=== PATIENT | male | born 1985 | race African-American/Black ===

== ENCOUNTER 2019-08-21 06:47 | Emergency (ER) | payer BC ==
[2019-08-21 07:09] LABS: Absolute Lymphocytes (CBC) 1.4 K/uL (0.7-4.9); Basophils % 1.4 % (0-1.3); Hematocrit 37.3 % (39.6-49.0); Lymphocytes % 31.5 % (15.3-44.8); MPV 8.3 fL (7.6-11.3); RBC Red Blood Cell Count 4.42 M/uL (4.33-5.43)
[2019-08-21 07:11] LABS: Protime INR 1.1
[2019-08-21 07:31] LABS: ALT/SGPT 21 U/L (12-78); AST/SGOT 15 U/L (15-37); Albumin 3.4 g/dL (3.4-5.0); Alkaline Phosphatase 83 U/L (45-117); BUN Blood Urea Nitrogen 13 mg/dL (7-18); Bicarbonate 29 mmol/L (21-32); Bilirubin Direct 0.2 mg/dL (0-0.2); Bilirubin Total 0.6 mg/dL (0.2-1.0); Glucose Level 111 mg/dL (74-106); NT PRO-BNP 15 pg/mL (<125); Potassium 3.4 mmol/L (3.5-5.1); Protein, Total 6.7 g/dL (6.4-8.2); Sodium Level 143 mmol/L (136-145); Troponin (Emerg Dept Use Only) < 0.02 ng/mL (0.0-0.045)
--- NOTE | 2019-08-21 08:02 | RAD REPORT ---
EXAM DESCRIPTION: Jin Single View08/21/2019 7:20 am CLINICAL HISTORY: Chest pain COMPARISON: none FINDINGS: The lungs appear clear of acute infiltrate. The heart is normal size IMPRESSION: No acute abnormalities displayed
--- NOTE | 2019-08-21 09:43 | EDPHYS ---
Physician Documentation [facility] Name: Cesar Leiva Jr Age: 33 yrs Sex: Male : 1985 Arrival Date: 08/21/2019 Time: 06:45 Bed 18 Private MD: ED Physician Orville Werner HPI: 08/21 07:03 This 33 yrs old Black Male presents to ER via EMS with complaints of Chest Pain. jr8 07:03 Onset: The symptoms/episode began/occurred this morning, at 05:30. Associated signs and jr8 symptoms: Pertinent positives: chest pain, Pertinent negatives: congestion, cough, wheezing. Modifying factors: The patient symptoms are alleviated by nothing, the patient symptoms are aggravated by nothing. The patient has not experienced similar symptoms in the past. The patient has not recently seen a physician. Pt reports he was in the shower and began having a dull pain in the middle of this chest. Denies SOB, nausea, diaphoresis. Pt reports he is still experiencing pain, has taken 324 ASA SLIP MAKER . Historical: - Allergies: 06:47 No Known Allergies; ch - Home Meds: 06:47 None [Active]; ch - PMHx: 06:47 None; ch - PSHx: 06:47 None; ch - Immunization history:: Adult Immunizations up to date. - Social history:: Smoking status: Patient/guardian denies using tobacco. - Ebola Screening: : Patient negative for fever greater than or equal to 101.5 degrees Fahrenheit, and additional compatible Ebola Virus Disease symptoms Patient denies exposure to infectious person Patient denies travel to an Ebola-affected area in the 21 days before illness onset No symptoms or risks identified at this time. ROS: 07:05 Constitutional: Negative for fever, chills, and weight loss, Eyes: Negative for injury, jr8 pain, redness, and discharge, ENT: Negative for injury, pain, and discharge, Neck: Negative for injury, pain, and swelling, Respiratory: Negative for shortness of breath, cough, wheezing, and pleuritic chest pain, Abdomen/GI: Negative for abdominal pain, nausea, vomiting, diarrhea, and constipation, Back: Negative for injury and pain, MS/Extremity: Negative for injury and deformity, Neuro: Negative for headache, weakness, numbness, tingling, and seizure. 07:05 Cardiovascular: Positive for chest pain, Negative for edema, orthopnea, palpitations, paroxysmal nocturnal dyspnea. Exam: 07:06 Constitutional: This is a well developed, well nourished patient who is awake, alert, jr8 and in no acute distress. Head/Face: Normocephalic, atraumatic. Eyes: Pupils equal round and reactive to light, extra-ocular motions intact. Lids and lashes normal. Conjunctiva and sclera are non-icteric and not injected. Cornea within normal limits. Periorbital areas with no swelling, redness, or edema. ENT: Nares patent. No nasal discharge, no septal abnormalities noted. Tympanic membranes are normal and external auditory canals are clear. Oropharynx with no redness, swelling, or masses, exudates, or evidence of obstruction, uvula midline. Mucous membranes moist. Neck: Trachea midline, no thyromegaly or masses palpated, and no cervical lymphadenopathy. Supple, full range of motion without nuchal rigidity, or vertebral point tenderness. No Meningismus. Chest/axilla: Normal chest wall appearance and motion. Nontender with no deformity. No lesions are appreciated. Cardiovascular: Regular rate and rhythm with a normal S1 and S2. No gallops, murmurs, or rubs. Normal PMI, no JVD. No pulse deficits. Respiratory: Lungs have equal breath sounds bilaterally, clear to auscultation and percussion. No rales, rhonchi or wheezes noted. No increased work of breathing, no retractions or nasal flaring. Abdomen/GI: Soft, non-tender, with normal bowel sounds. No distension or tympany. No guarding or rebound. No evidence of tenderness throughout. Back: No spinal tenderness. No costovertebral tenderness. Full range of motion. MS/ Extremity: Pulses equal, no cyanosis. Neurovascular intact. Full, normal range of motion. Neuro: Awake and alert, GCS 15, oriented to person, place, time, and situation. Cranial nerves II-XII grossly intact. Motor strength 5/5 in all extremities. Sensory grossly intact. Cerebellar exam normal. Normal gait. 07:06 Cardiovascular: Rate: normal, Rhythm: regular, Pulses: Pulses are 3+ in right radial artery and left radial artery. Heart sounds: normal, normal S1and S2, Edema: is not appreciated. 07:06 Respiratory: the patient does not display signs of respiratory distress, Respirations: normal, Breath sounds: are clear throughout. Vital Signs: 06:58 BP 133 / 88; Pulse 71; Resp 16; Temp 99.2; Pulse Ox 97% on R/A; Weight 117.93 kg; ch Height 6 ft. 3 in. (190.50 cm); Pain 7/10; 07:00 BP 132 / 78; Pulse 60; Resp 13; Pulse Ox 100% ; bp 08:57 BP 114 / 84; Pulse 61; Resp 13; Pulse Ox 100% ; bp 09:49 BP 127 / 87; Pulse 56; Resp 10; Temp 98; Pulse Ox 100% ; bp 06:58 Body Mass Index 32.50 (117.93 kg, 190.50 cm) ch MDM: 06:51 Patient medically screened. [facility] 09:41 Data reviewed: vital signs, nurses notes, lab test result(s), EKG, radiologic studies, [facility] plain films. Data interpreted: Pulse oximetry: on room air is 100 %. Interpretation: normal. Counseling: I had a detailed discussion with the patient and/or guardian regarding: the historical points, exam findings, and any diagnostic results supporting the discharge/admit diagnosis, lab results, radiology results, the need for outpatient follow up, a accounts specialist, a family practitioner, to return to the emergency department if symptoms worsen or persist or if there are any questions or concerns that arise at home. Response to treatment: the patient's symptoms have resolved after treatment. 08/21 06:52 Order name: Basic Metabolic Panel [facility] 08/21 06:52 Order name: CBC with Diff 08/21 06:52 Order name: LFT's [facility] 08/21 06:52 Order name: Magnesium; Complete Time: 07:33 [facility] 08/21 06:52 Order name: NT PRO-BNP; Complete Time: 07:33 [facility] 08/21 06:52 Order name: PT-INR; Complete Time: 07: [facility] 08/21 06:52 Order name: Troponin (emerg Dept Use Only); Complete Time: 07:33 [facility] 08/21 06:52 Order name: XRAY Chest (1 view); Complete Time: 08:10 [facility] 08/21 06:52 Order name: EKG; Complete Time: 06:52 [facility] 08/21 06:52 Order name: Cardiac monitoring; Complete Time: 07:04 jr8 08/21 06:52 Order name: Basic Metabolic Panel; Complete Time: 07:33 EDMS 08/21 06:52 Order name: CBC with Automated Diff EDMS 08/21 06:52 Order name: Liver (Hepatic) Function; Complete Time: 07:33 EDMS 08/21 08:59 Order name: Troponin (emerg Dept Use Only); Complete Time: 09:41 jr8 08/21 06:52 Order name: EKG - Nurse/Tech; Complete Time: 07:04 jr8 08/21 06:52 Order name: IV Saline Lock; Complete Time: 07:04 jr8 08/21 06:52 Order name: Labs collected and sent; Complete Time: 07:04 jr8 08/21 06:52 Order name: O2 Per Protocol; Complete Time: 07:04 jr8 08/21 06:52 Order name: O2 Sat Monitoring; Complete Time: 07:04 jr8 Administered Medications: No medications were administered Disposition: 15:14 Co-signature as Attending Physician, Orville Werner MD. Disposition: 08/21/19 09:41 Discharged to Home. Impression: Chest pain, unspecified. - Condition is Stable. - Discharge Instructions: Nonspecific Chest Pain, Chest Wall Pain. - Work release form, Family Work Release, Medication Reconciliation Form, Thank You Letter, Antibiotic Education, Prescription Opioid Use form. - Follow up: Ortega Gillis MD; When: 1 - 2 days; Reason: Recheck today's complaints, Continuance of care, Re-evaluation by your physician. - Problem is new. - Symptoms have improved. Signatures: Dispatcher [employer] [facility] Monalisa Cassidy, RN RN Huan Roland PA PA jr8 Orville Werner MD MD Caleb Mack RN RN bp Corrections: (The following items were deleted from the chart) 09:52 09:41 08/21/2019 09:41 Discharged to Home. Impression: Chest pain, unspecified. bp Condition is Stable. Forms are Medication Reconciliation Form, Thank You Letter, Antibiotic Education, Prescription Opioid Use. Follow up: Ortega Gillis; When: 1 - 2 days; Reason: Recheck today's complaints, Continuance of care, Re-evaluation by your physician. Problem is new. Symptoms have improved. jr8
--- NOTE | 2019-08-21 09:43 | ER ---
Nurse's Notes [facility] Name: Cesar Leiva Jr Age: 33 yrs Sex: Male : 1985 Arrival Date: 08/21/2019 Time: 06:45 Bed 18 Private MD: Diagnosis: Chest pain, unspecified Presentation: 08/21 06:45 Presenting complaint: EMS states: In shower at 0530 started getting chest pain, ch throbbing and different from indigestion. 12 lead sinus. Transition of care: patient was not received from another setting of care. Onset of symptoms was August 21, 2019 at 05:30. Risk Assessment: Do you want to hurt yourself or someone else? Patient reports no desire to harm self or others. Initial Sepsis Screen: Does the patient meet any 2 criteria? No. Patient's initial sepsis screen is negative. Does the patient have a suspected source of infection? No. Patient's initial sepsis screen is negative. Care prior to arrival: Medication(s) given: ASA, 325 mg, Bgl 102 IV initiated. 20 GA, in the right antecubital area. 06:45 Method Of Arrival: EMS: [facility] 06:45 Acuity: JT 3 ch Triage Assessment: 06:47 General: Appears in no apparent distress. comfortable, Behavior is calm, cooperative, ch appropriate for age. Pain: Complains of pain in chest. Cardiovascular: Reports chest pain. Historical: - Allergies: 06:47 No Known Allergies; ch - Home Meds: 06:47 None [Active]; ch - PMHx: 06:47 None; ch - PSHx: 06:47 None; ch - Immunization history:: Adult Immunizations up to date. - Social history:: Smoking status: Patient/guardian denies using tobacco. - Ebola Screening: : Patient negative for fever greater than or equal to 101.5 degrees Fahrenheit, and additional compatible Ebola Virus Disease symptoms Patient denies exposure to infectious person Patient denies travel to an Ebola-affected area in the 21 days before illness onset No symptoms or risks identified at this time. Screenin:48 Abuse screen: Denies threats or abuse. Denies injuries from another. Nutritional ch screening: No deficits noted. Tuberculosis screening: No symptoms or risk factors identified. Fall Risk None identified. Assessment: 06:48 Pain: Complains of pain in chest Pain does not radiate. Pain began suddenly. 07:00 Reassessment: RECD REPORT FROM MONALISA CHAIDEZ. 33YO BM P/W SUBSTERNAL CP, 05/13. ALL bp CURRENT ORDERS COMPLETED, VS STABLE ON MONITOR. 07:42 Reassessment: REPEAT TROP DUE AT 0930. bp 08:57 Reassessment: Patient is alert, oriented x 3, equal unlabored respirations, skin bp warm/dry/pink. NO ACUTE S/S OF DISTRESS, VS STABLE. 09:48 Reassessment: PT D/C HOME AMBULATORY WITH FAMILY, DX WITH UNSPECIFIED CHEST PAIN. bp Vital Signs: 06:58 BP 133 / 88; Pulse 71; Resp 16; Temp 99.2; Pulse Ox 97% on R/A; Weight 117.93 kg; ch Height 6 ft. 3 in. (190.50 cm); Pain 05/13; 07:00 BP 132 / 78; Pulse 60; Resp 13; Pulse Ox 100% ; bp 08:57 BP 114 / 84; Pulse 61; Resp 13; Pulse Ox 100% ; bp 09:49 BP 127 / 87; Pulse 56; Resp 10; Temp 98; Pulse Ox 100% ; bp 06:58 Body Mass Index 32.50 (117.93 kg, 190.50 cm) Vitals: 06:58 Cardiac Rhythm Assessment Regular Sinus rhythm. ED Course: 06:45 Patient arrived in ED. 06:47 Triage completed. 06:47 Arm band placed on left wrist. Patient placed in an exam room, on a stretcher. 06:48 Patient has correct armband on for positive identification. Bed in low position. Call light in reach. Side rails up X 1. patient access registrar on. Pulse ox on. NIBP on. 06:48 No provider procedures requiring assistance completed. Maintain EMS IV. Dressing ch intact. Good blood return noted. Site clean \T\ dry. Gauge \T\ site: 20 R AC. Patient maintains SpO2 saturation greater than 95% on room air. 06:51 Huan Roland PA is PHCP. jr8 06:51 Orville Werner MD is Attending Physician. jr8 06:59 Report given to Claeb. ch 07:03 Caleb Mack, RN is Primary Nurse. bp 07:21 XRAY Chest (1 view) In Process Unspecified. EDMS 09:15 EKG done, by robotic weld technician. reviewed by Huan LONGORIA Repeat EKG. at1 09:41 Ortega Gillis MD is Referral Physician. jr8 09:48 IV discontinued, intact, bleeding controlled, No redness/swelling at site. Pressure bp dressing applied. Administered Medications: No medications were administered Outcome: 09:41 Discharge ordered by . jr8 09:49 Discharged to home ambulatory, with family. bp 09:49 Condition: stable 09:49 Discharge instructions given to patient, Instructed on discharge instructions, follow up and referral plans. Demonstrated understanding of instructions, follow-up care. 09:52 Patient left the ED. bp Signatures: Dispatcher [employer] [facility] Monalisa Cassidy, RN RN Huan Duque PA PA jr8 Gemini Lainez, terra cotta roofer EKG Tat1 Caleb Mack RN RN bp
[2019-08-21 10:08] VITALS: O2SAT 100
[2019-08-21 10:11] VITALS: BP 127/87; TEMP 98
--- NOTE | 2019-08-21 12:54 | EKG ---
Test Date: 2019-08-21 Test Time: 09:05:36 Flux Tube Attendant: LILLIAM MEASUREMENT RESULTS: Intervals: Rate: 53 WI: 176 QRSD: 96 QT: 414 QTc: 388 Zebulon: P: 37 WI: 176 QRS: 19 T: 40 INTERPRETIVE STATEMENTS: Sinus bradycardia Otherwise normal ECG Compared to ECG 08/21/2019 06:46:48 Sinus rhythm no longer present Sinus arrhythmia no longer present T-wave abnormality no longer present Electronically Signed On 08-21-19 12:52:57 CDT by Yovani Sanchez
--- NOTE | 2019-08-21 12:54 | EKG ---
Test Date: 2019-08-21 Test Time: 06:46:48 Manufacturing Specialist: KAYLA MEASUREMENT RESULTS: Intervals: Rate: 63 MD: 164 QRSD: 88 QT: 388 QTc: 397 Belk: P: 44 MD: 164 QRS: 16 T: 39 INTERPRETIVE STATEMENTS: Normal sinus rhythm with sinus arrhythmia Nonspecific T wave abnormality Abnormal ECG Compared to ECG 04/17/2011 17:49:56 No significant changes Electronically Signed On 08-21-19 12:53:03 CDT by Yovani Sanchez
== END 2019-08-21 09:52 | disposition home or self-care (01) ==
LOC: ER 06:47
DX: R07.9 Chest pain, unspecified (principal)
CPT/HCPCS: 36415; 71045; 80048; 80076; 83735; 83880; 84484; 85025; 85610; 93005; 99285